=== PATIENT | female | born 1970 | race Caucasian/White ===

== ENCOUNTER 2023-08-22 11:14 | Emergency (ER) | payer OTHER, SELFPAY ==
--- NOTE | ~2023-08-22 | XR_ITS ---
EXAMINATION: XR HAND, RIGHT CLINICAL INFORMATION: Fourth and fifth metacarpal injury after trip and fall COMPARISON: Right fifth digit TECHNIQUE: PA, lateral, and oblique views of the right hand. FINDINGS: Again seen is mild flexion deformity at the DIP joint of the fifth digit. No acute fractures or dislocations are seen. XR/XR hand RT min 3V IMPRESSION: No acute fractures or dislocations. Mild unchanged flexion deformity at the DIP joint of the fifth digit.
[2023-08-22 11:56] VITALS: BP 123/76; PULSE 96; RESP 18; TEMP 36.8; O2SAT 100; BMI 18.4
--- NOTE | 2023-08-22 11:58 | ED_ITS ---
HPI - General Adult General Chief complaint: Extremity Injury, Upper Stated complaint: R hand inj Time Seen by Provider: 08/22/23 13:55 Source: patient, RN notes reviewed and old records reviewed Mode of arrival: ambulatory Limitations: no limitations History of Present Illness HPI narrative: 52-year-old female presents for evaluation of right hand pain. The patient reports that she tripped over dog toy last night and accidentally hit a counter with her right hand She denies any head or losing consciousness. She reports pain indicates the area with a right 4th and 5th MCP joints She reports chronic pain in her wrist but no change from baseline Related Data Allergies Allergy/AdvReac Type Severity Reaction Status Date / Time No Known Allergies Allergy Verified 08/22/23 11:58 Review of Systems Constitutional: Constitutional: Denies body ache(s), Denies chills and Denies fever(s) ENT: Denies sore throat Cardiovascular: Cardiovascular: Denies chest pain Musculoskeletal: Musculoskeletal: Reports arthralgias, Reports joint swelling and Reports limited range of motion Integumentary/Breasts: Skin/Breast: Denies rash PMFSH Social History Social History Advance Directives: No Advance Directives Information Provided: No Physical Exam ED Vital Signs: Vital Signs - 24 hr 08/22/23 11:56 08/22/23 13:58 Temperature 98.2 F 98.2 F Pulse Rate 96 96 Respiratory Rate 18 18 Blood Pressure 123/76 123/76 Pulse Oximetry 100 Oxygen Delivery Method Room Air Room Air BMI result Body Mass Index 18.4 Const General: healthy appearing, comfortable, no acute distress, alert and awake Nutritional Appearance: well nourished Orientation/consciousness: patient oriented x3 HENMT Head: Yes normocephalic and Yes atraumatic Neck Neck: Yes full ROM Resp Effort & Inspection: normal respiratory effort, able to speak in complete sentences and not labored Cardio Rate: regular rate Rhythm: regular rhythm Skin General skin exam: elasticity normal Neuro General: patient oriented x3 Cranial nerves: Yes Bilaterally intact EOM present Cognition (Neuro): normal cognition Extrem Other: Patient has mild edema over right 4th and 5th MCP joints. This area is tender to palpation. No palpable deformity. No right wrist tenderness Course Course Course Narrative: RME- 52-year-old female presents for evaluation of right hand injury. She reports she tripped in the middle of the night and struck her right hand against a counter when she was falling. She has mild edema to the right 4th and 5th metacarpal/MCP joints. Plan for x-ray of the right hand Reevaluation(s) Reevaluation #1: Patient requested ?something stronger than ibuprofen or Tylenol for the pain. I explained that given that there is no fracture, dislocation and just a small bruise to the area I did not feel that narcotics were appropriate. After explained this to the patient, she got up and walked out of the emergency department prior to receiving her discharge papers Time: 14:06 Medical Decision Making Medical Decision Making [facility] Narrative: 52-year-old female presents for evaluation injury to right hand, plan for x- rays. Differential Diagnosis Differential Diagnoses: The differential diagnosis associated with the presentation includes Hand sprain Hand fracture Hand dislocation Contusion Independent Interpretation I performed an independent interpretation of an: Plain X-Ray (No obvious fracture of the right hand) Radiology Impression Discussion of test interpretation with radiology: I have reviewed the radiologist's reading. Radiologist Impression: IMPRESSION: No acute fractures or dislocations. Mild unchanged flexion deformity at the DIP joint of the fifth digit. Discharge Plan Discharge Clinical Impression: Hand pain, right Patient Disposition: Home, Self-Care Instructions: Contusion in Adults (ED) Additional Instructions: Your x-ray did not show any evidence of fracture Use ibuprofen or Tylenol for pain Ice the area every 4 hours for 10-15 minutes Your primary doctor Interventions: ED Discharge Assessment Last Done: 08/22/23 13:58 Print Language: Yakut
[2023-08-22 13:58] VITALS: BP 123/76; PULSE 96; RESP 18; TEMP 36.8
--- OUTSIDE RECORDS SUMMARY | 2023-08-22 14:03 | XMS_ITS | Continuity of Care Document ---
Author Organization [facility] ter Address [address] [place] [address]- Care Team Providers Care Pneumatic Press Hand Name Role Phone Not on Staff, PCP Primary Care Physician Unavail able Encounter [facility] Date(s): 11/01/22 - 11/01/[address] [address]- Encounter Diagnosis Pain, dental(Final) - 11/01/22 Discharge Disposition: A-D/C Home Attending Physician: Kike Barrett MD Admitting Physician: Kike Barrett MD Referring Physician: Not on Staff, Referring MD Allergies, Adverse Reactions, Alerts No Known Allergies Medications Gabapentin By Mouth, 0 Refills, Maintenance, 02/19/21 11:43:00 EDT, Partial fill upon patient request if the prescription is for a schedule II opioid drug. Start Date: 02/19/21 Status: Ordered oxyCODONE 5 mg oral capsule 1 capsule = 5 mg, By Mouth, Every 6 hours, PRN as needed for pain, # 10 capsule, 0 Refills, Maintenance, 11/01/22 14:39:00 EDT, Capsule, [id number], Partial fill upon patient request if the prescription is for a schedule II opioid drug., 155,... Start Date: 11/01/22 Status: Ordered Vital Signs Most recent to oldest [Reference Range]: 1 2 Height 155 cm (11/01/22 3:13 PM) 155 cm (11/01/22 2:06 PM) Oxygen Saturation [94-100 %] 100 % (11/01/22 2:06 PM) 100 % (11/01/22 2:00 PM) Pulse Rate [55-90 bpm] 108 bpm *H* (11/01/22 2:06 PM) 119 bpm *H* (11/01/22 2:00 PM) Blood Pressure [90-138/55-84 mm Hg] 129/ 84mm Hg (11/01/22 2:06 PM) Respiratory Rate [16-30 br/min] 16 br/mi n (11/01/22 2:06 PM) Temperature [96.8-100.4 DegF] 98.4 DegF (11/01/22 2:06 PM) Mode of Delivery (Oxygen) Room air (11/01/22 2:06 PM) Room air (11/01/22 2:00 PM) Blood pressure sites Arm, left (11/01/22 2:06 PM) Temperature Route Oral (11/01/22 2:06 PM) Dry Weight 40.9 kg (11/01/22 3:13 PM) 40.9 kg (11/01/22 2:06 PM) Dry Weight Obtained Via Patient/family s tated (11/01/22 2:06 PM) Note * Arnold RILEY, Kike Galindo: PERFORM, SIGN, VERIFY Event Display: Patient Education Handout Authored Date: [id number] Patient Care team information Care Team Personnel Name: Not on Staff, PCP Position: [facility] Physician (General Medicine) Member Role: PCP Name: Kike Barrett MD Position: [facility] ED Medicine MD Member Role: Admitting Physician Address: Address: [address] [place] [address] [place] [address]- Care Team Related Persons Name: DENISEDARENILDA CHALO Address: home [address] [place] [address]
--- OUTSIDE RECORDS SUMMARY | 2023-08-22 14:03 | XMS_ITS | Continuity of Care Document ---
Author Organization [facility] Address [address] [place] [address]- Care Team Providers Care Plodding Machine Operator Name Role Phone Not on Staff, PCP Primary Care Physician Unavail able Encounter [facility] NBR [id number] Date(s): 02/12/21 - 04/04/21 [facility] [address] [place] [address]- Attending Physician: Kevin RILEY, Farooq Chung Allergies, Adverse Reactions, Alerts Substance Reaction Severity Status NKA Active Medications Gabapentin By Mouth, 0 Refills, Maintenance, 02/19/21 11:43:00 EDT, Partial fill upon patient request if the prescription is for a schedule II opioid drug. Start Date: 02/19/21 Status: Ordered
--- OUTSIDE RECORDS SUMMARY | 2023-08-22 14:03 | XMS_ITS | Continuity of Care Document ---
Author Organization [facility] ter Address [address] [place] [address]- Care Team Providers Care Lead Atg Developer Name Role Phone Not on Staff, PCP Primary Care Physician Unavail able [place]counter [facility] [place] Date(s): 04/13/23 - 04/13/[address] [address]- Discharge Disposition: A-D/C Walkout Attending Physician: Not on Staff, Attending MD Admitting Physician: Not on Staff, Admitting MD Referring Physician: Not on Staff, Referring [...] drug., 155,... Start Date: 11/01/22 Status: Ordered Patient Care team information Care Team Personnel Name: Not on Staff, PCP Position: S Physician (General Medicine) Member Role: PCP Care Team Related Persons Name: MELY GUZMAN Address: home [address] [place] [address] Name: CHALO PICHARDO Address: home [address], [place]
--- OUTSIDE RECORDS SUMMARY | 2023-08-22 14:03 | XMS_ITS | Continuity of Care Document ---
Author Organization [facility] Address [address] [place] [address]- Care Team Providers Care Training Representative Name Role Phone Not on Staff, PCP Primary Care Physician Unavail able [facility] [id number] Date(s): 02/11/21 - 03/20/21 [facility] [address] [place] [address]- Attending Physician: Galo RILEY, Aide Reveles Allergies, Adverse Reactions, Alerts Substance Reaction Severity Status NKA Active Medications Gabapentin By Mouth, 0 Refills, Maintenance, 02/19/21 11:43:00 EDT, Partial fill upon patient request if the prescription is for a schedule II opioid drug. Start Date: 02/19/21 Status: Ordered
--- OUTSIDE RECORDS SUMMARY | 2023-08-22 14:03 | XMS_ITS | Continuity of Care Document ---
Author Organization [facility] Address [address] [place] [address]- Care Team Providers Care Intermodal Truck Driver Name Role Phone Not on Staff, PCP Primary Care Physician Unavail able Encounter [facility] NBR [id number] Date(s): 03/05/21 - 04/04/21 [facility] [address] [place] [address]- Attending Physician: Alex Jones Admitting Physician: Admtr, Ar8 Referring Physician: Admtr, Ar8 Allergies, Adverse Reactions, Alerts Substance Reaction Severity Status NKA Active Medications Gabapentin By Mouth, 0 Refills, Maintenance, 02/19/21 11:43:00 EDT, Partial fill upon patient request if the prescription is for a schedule II opioid drug. Start Date: 02/19/21 Status: Ordered
--- OUTSIDE RECORDS SUMMARY | 2023-08-22 14:03 | XMS_ITS | Continuity of Care Document ---
Author Organization [facility] ter Address [address] [place] [address]- Care Team Providers Care Diver Assistant Name Role Phone Not on Staff, PCP Primary Care Physician Unavail able [place] [facility] [place] 11/09/[address] [address]- Discharge Disposition: A-D/C Home Attending Physician: Krissy Griggs MD Admitting Physician: Krissy Griggs MD Referring Physician: Not on Staff, Referring [...] drug., 155,... Start Date: 11/01/22 Status: Ordered oxyCODONE 5 mg oral tablet 5 mg, 1, tablet, By Mouth, Daily at bedtime, PRN, for 3 days, # 3 tablet, Refills 0, Tot. Refills 0, Acute 11/12/22 11:49:00 EDT, for pain, 11/09/22 11:49:00 EDT, [id number], Partial fill upon patient request... Start Date: 11/09/22 Stop Date: 11/12/22 Status: Ordered penicillin V potassium 500 mg oral tablet 1 tablet = 500 mg, By Mouth, 4 times a day, for 7 days, # 28 tablet, 0 Refills, Acute 11/16/22 11:53:00 EDT, 11/09/22 11:53:00 EDT, Tablet, [facility]/pharmacy #[id number], Partial fill upon patient request if the prescription is for a schedule II opioid drug., 15... Start Date: 11/09/22 Stop Date: 11/16/22 Status: Ordered Vital Signs Most recent to oldest [Reference Range]: 1 2 3 Height 155 cm (11/09/22 12:22 PM) 155 cm (11/09/22 11:59 AM) 155 cm (11/09/22 11:27 AM) Oxygen Saturation [94-100 %] 99 % (11/09/22 11:59 AM) 100 % (11/09/22 11: AM) Pulse Rate [55-90 bpm] 115 bpm *H* (11/09/22 11:59 AM) 107 bpm *H* (11/09/22 11:27 AM) Blood Pressure [90-138/55-84 mm Hg] 136/85mm Hg (11/09/22 11:59 AM) 134/83mm Hg (11/09/22 11:27 AM) Respiratory Rate [16-30 br/min] 18 br/min (11/09/22 11:59 AM) Temperature [96.8-100.4 DegF] 98.7 DegF (11/09/22 11:59 AM) 98.2 DegF (11/09/22 11:27 AM) Mode of Delivery (Oxygen) Room air (11/09/22 11:59 AM) Room air (11/09/22 11:27 AM) Blood pressure sites Arm, left (11/09/22 11:59 AM) Arm, left (11/09/22 11:27 AM) Temperature Route Oral (11/09/22 11:59 AM) Oral (11/09/22 11:27 AM) Dry Weight 41 kg (11/09/22 12:22 PM) 41 kg (11/09/22 11:59 AM) 41 kg (11/09/22 11:27 AM) Weight Obtained Via Patient/family state d (11/09/22 11:27 AM) Dry Weight Obtained Via Patient/family s tated (11/09/22 11:27 AM) Note * Krissy Griggs MD: PERFORM, SIGN, VERIFY Event Display: Patient Education Handout Authored Date: [id number] Patient Care team information Care Team Personnel Name: Not on Staff, PCP Position: [facility] Physician (General Medicine) Member Role: PCP Name: Krissy Griggs MD Position: [facility] ED Medicine MD Member Role: Admitting Physician Address: Address: [address] [place] [address] Emergency Medicine [address] Care Team Related Persons Name: CHALO PICHARDO Address: home [address] [place] [address]
--- OUTSIDE RECORDS SUMMARY | 2023-08-22 14:03 | XMS_ITS | Continuity of Care Document ---
Author Organization [facility] Address [address] [place] [address]- Care Team Providers Care Reverse Unit Operator Fisherman Name Role Phone Not on Staff, PCP Primary Care Physician Unavail able Encounter [facility] NBR [id number] Date(s): 02/11/21 - 03/20/21 [facility] [address] [place] [address]- Attending Physician: Galo RILEY, Aide Reveles Allergies, Adverse Reactions, Alerts Substance Reaction Severity Status NKA Active Medications Gabapentin By Mouth, 0 Refills, Maintenance, 02/19/21 11:43:00 EDT, Partial fill upon patient request if the prescription is for a schedule II opioid drug. Start Date: 02/19/21 Status: Ordered
== END 2023-08-22 14:07 | disposition home or self-care (01) ==
PROVIDERS: Emergency Provider Emergency Medicine
DX: M79.641 Pain in right hand (principal)
CPT/HCPCS: 73130; 99282; 99283

== ENCOUNTER 2024-03-07 17:54 | Emergency (ER) | payer OTHER, SELFPAY ==
--- OUTSIDE RECORDS SUMMARY | 2024-03-07 18:35 | XMS_ITS | Continuity of Care Document ---
Author Organization [facility] ter Address [address] [place] [address]- Care Team Providers Care Planning Advisor Name Role Phone Not on Staff, PCP Primary Care Physician Unavail able [place] [facility] [place]/24/24 - 01/24/[address] [address]- Discharge Disposition: A-D/C Home Attending Physician: Mariana Patel MD Admitting Physician: Mariana Patel MD Referring Physician: Not on Staff, Referring MD Allergies, Adverse Reactions, Alerts No Known Allergies Medications Gabapentin = 400 mg, By Mouth, 3 times a day, 0 Refills, Maintenance, 08/03/23 9:21:00 EDT, Partial fill upon patient request if the prescription is for a schedule II opioid drug. Start Date: 08/03/23 Status: Ordered oxyCODONE 5 mg oral tablet 5 mg, 1, tablet, By Mouth, Every 6 hours, PRN, # 4 tablet, Refills 0, Tot. Refills 0, Maintenance, as needed for pain, 01/13/24 13:06:00 EDT, Route to Pharmacy Electronically, [facility]/pharmacy #[id number], Partial fill upon patient request if the prescription i... Start Date: 01/13/24 Status: Ordered Problem List Condition Confirmation Course Effective Dates Status Health St atus Informant Underweight Confirmed Active Results Radiology Reports * Exam Date Time Procedure Performing Provider Status 01/24/24 9:37 AM Finger 5th Right Hand Thea Weinstein; [facility] (Verified) Notes: (Finger 5th Right Hand) Reason For Exam: Pain RESULT: Finger 5th Right Hand Finger 5th Right Hand, 3 views Hx of Present Illness: 5th finger. Range of motion COMPARISON: 01/10/2024 FINDINGS: No fractures or bone lesions. No arthritic changes. Normal soft tissues. IMPRESSION: Normal. WSN: [id number] Ordering Physician: Niall Pretty Dictated By: Kalyan Ding MD Dictated Date/Time: 01/24/24 9:42 am Reviewed By: Kalyan Ding MD Signed By: Kalyan Ding MD Signed Date/Time: 01/24/24 9:42 am Transcribed By: SOHAIL Transcribed Date/Time: 01/24/24 9:41 am Vital Signs Most recent to oldest [Reference Range]: 1 Height 156 cm (01/24/24 8:28 AM) Oxygen Saturation [94-100 %] 100 % (01/24/24 8:28 AM) Pulse Rate [55-90 bpm] 100 bpm *H* (01/24/24 8:28 AM) Blood Pressure [90-138/55-84 mm Hg] 112/ 78mm Hg (01/24/24 8:28 AM) Respiratory Rate [16-30 br/min] 20 br/mi n (01/24/24 8:28 AM) Temperature [96.8-100.4 DegF] 98.1 DegF (01/24/24 8:28 AM) Mode of Delivery (Oxygen) Room air (01/24/24 8:28 AM) Blood pressure sites Arm, left (01/24/24 8:28 AM) Temperature Route Oral (01/24/24 8:28 AM) Dry Weight 41 kg (01/24/24 8:28 AM) Dry Weight Obtained Via Patient/family s tated (01/24/24 8:28 AM) Social History Social History Type Response Smoking Status Never (less than 100 in lifetime) entered on: 05/12/23 Sex Female Patient Care team information Care Team Personnel Name: Not on Staff, PCP Position: S Physician (General Medicine) Member Role: PCP Care Team Related Persons Name: MELY GUZMAN Address: home [address] [place] [id number] Name: CHALO PICHARDO Address: home [address] [place] [address]
--- OUTSIDE RECORDS SUMMARY | 2024-03-07 18:35 | XMS_ITS | Continuity of Care Document ---
Author Organization [facility] ter Address [address] [place] [address]- Care Team Providers Care Supervisor Statement Clerks Name Role Phone Not on Staff, PCP Primary Care Physician Unavail able [place]counter [facility] [place] Date(s): 08/25/23 - 08/25/[address] [address]- Encounter Diagnosis Dental decay(Final) - 08/25/23 Discharge Disposition: A-D/C Home Attending Physician: Chencho Servin MD Admitting Physician: Chencho Servin MD Referring Physician: Not on Staff, Referring MD Allergies, Adverse Reactions, Alerts No Known Allergies Medications Gabapentin = 400 mg, By Mouth, 3 times a day, 0 Refills, Maintenance, 08/03/23 9:21:00 EDT, Partial fill upon patient request if the prescription is for a schedule II opioid drug. Start Date: 08/03/23 Status: Ordered ondansetron 4 mg oral tablet, disintegrating 1 tablet = 4 mg, By Mouth, Every 8 hours, PRN as needed for nausea/vomiting, # 6 tablet, 0 Refills,Maintenance, 08/20/23 12:01:00 EDT, DIS Tablet, Partial fill upon patient request if the prescription is for a schedule II opioid drug. Start Date: 08/20/23 Status: Ordered oxyCODONE 5 mg oral tablet 2.5 mg, 0.5, tablet, By Mouth, Every 6 hours, PRN, # 4 tablet, Refills 0, Tot. Refills 0, Acute 09/03/23 15:40:00 EDT, as needed for pain, 08/19/23 15:40:00 EDT, Route to Pharmacy Electronically, [facility]/pharmacy #[id number], Partial fill upon patient request i... Start Date: 08/19/23 Stop Date: 09/03/23 Status: Ordered oxyCODONE 5 mg oral tablet 5 mg, 1, tablet, By Mouth, Every 6 hours, PRN, for 2 days, Partial fill available at patients request, # 6 tablet, Refills 0, Tot. Refills 0, Acute 08/27/23 15:16:00 EDT, for pain, 08/25/23 15:16:00 EDT, Route to Pharmacy Electronically, [facility]/pharmacy... Start Date: 08/25/23 Stop Date: 08/27/23 Status: Ordered OxyCODONE IR Tablet 5 mg, Tablet, By Mouth, Once, STAT, 08/25/23 12:03:00 EDT, Stop date 08/25/23 12:03:00 EDT Start Date: 08/25/23 Stop Date: 08/25/23 Status: Completed Problem List Condition Confirmation Course Effective Dates Status Health St atus Informant Underweight Confirmed Active Vital Signs Most recent to oldest [Reference Range]: 1 2 3 Height 155 cm (08/25/23 12:22 PM) 155 cm (08/25/23 11:08 AM) Oxygen Saturation [94-100 %] 100 % (08/25/23 3:20 PM) 100 % (08/25/23 11:08 AM) 100 % (08/25/23 11:01 AM) Pulse Rate [55-90 bpm] 88 bpm (08/25/23 3:20 PM) 94 bpm *H* (08/25/23 11:08 AM) 99 bpm *H* (08/25/23 11:01 AM) Blood Pressure [90-138/55-84 mm Hg] 102/66mm Hg (08/25/23 3:20 PM) 107/62mm Hg (08/25/23 11:08 AM) Respiratory Rate [16-30 br/min] 18 br/min (08/25/23 3:20 PM) 16 br/min (08/25/23 12:20 PM) 18 br/min (08/25/23 11:08 AM) Temperature [96.8-100.4 DegF] 98.4 DegF (08/25/23 11:08 AM) Mode of Delivery (Oxygen) Room air (08/25/23 3:20 PM) Room air (08/25/23 11:08 AM) Room air (08/25/23 11:01 AM) Blood pressure sites Arm, left (08/25/23 11:08 AM) Temperature Route Oral (08/25/23 11:08 AM) Social History Social History Type Response Smoking Status Never (less than 100 in lifetime) entered on: 05/12/23 Sex Patient Care team information Care Team Personnel Name: Not on Staff, PCP Position: S Physician (General Medicine) Member Role: PCP Care Team Related Persons Name: MELY GUZMAN Address: [address] [address] Name: CHALO PICHARDO Address: home [address] [place] [address]
--- OUTSIDE RECORDS SUMMARY | 2024-03-07 18:35 | XMS_ITS | Continuity of Care Document ---
Author Organization [facility] ter Address [address] [place] [id number]- Care Team Providers Care Coding Support Specialist Name Role Phone Not on Staff, PCP Primary Care Physician Unavail able Encounter [facility] Date(s): 01/10/24 - 01/10/[address] [address]- Encounter Diagnosis Finger pain(Final) - 01/10/24 Discharge Disposition: A-D/C Home Attending Physician: Mariana [...] opioid drug. Start Date: 08/03/23 Status: Ordered ibuprofen 600 mg oral tablet 600 mg, 1, tablet, By Mouth, 4 times a day, for 5 days, # 20 tablet, Refills 0, Tot. Refills 0, Acute 01/13/24 18:04:00 EDT, 01/08/24 18:04:00 EDT, Route to Pharmacy Electronically, [facility]/pharmacy #[id number], Partial fill upon patient request if the prescrip... Start Date: 01/08/24 Stop Date: 01/13/24 Status: Ordered oxyCODONE 5 mg oral tablet 5 mg, 1, tablet, By Mouth, Every 6 hours, PRN, # 5 tablet, Refills 0, Tot. Refills 0, Acute 01/13/24 8:00:00 EDT, as needed for pain, 01/10/24 9:21:00 EDT, Route to Pharmacy Electronically, [facility]/pharmacy #[id number], Partial fill upon patient request if the... Start Date: 01/10/24 Stop Date: 01/13/24 Status: Ordered OxyCODONE IR Tablet 5 mg, Tablet, By Mouth, Once, STAT, 01/10/24 8:28:00 EDT, Stop date 01/10/24 8:28:00 EDT Start Date: 01/10/24 Stop Date: 01/10/24 Status: Completed Problem List Condition Confirmation Course Effective Dates Status Health St atus Informant Underweight Confirmed Active Results Radiology Reports * Exam Date Time Procedure Performing Provider Status 01/10/24 8:55 AM Finger 5th Right Hand Myke Reynoso n; Auth (Verified) Notes: (Finger 5th Right Hand) Reason For Exam: Pain RESULT: Finger 5th Right Hand Examination: Right hand and right fifth digit performed on 01/10/2024. History: Hx of Present Illness: Pt reports injuring her R Pinky Finger on Tuesday, states she was seen at outside facility where XR showed a Fx. Pt reports hitting the finger again today and reports increased pain and decreased ROM; Reason: Pain; Clinical Question(s): Fracture Findings: A frontal view of the right hand and oblique and lateral views of the fifth digit are compared to aprior study dated 01/08/2024. No fractures or dislocations are demonstrated. Joint space narrowing involving the fifth proximal and distal interphalangeal joints is seen without productive change. The soft tissues are unremarkable. IMPRESSION: There is no osseous abnormality. WSN: [id number] Ordering Physician: Ev Rice Dictated By: Lydia Schultz MD Dictated Date/Time: 01/10/24 9:08 am Reviewed By: Lydia Schultz MD Signed By: Lydia Schultz MD Signed Date/Time: 01/10/24 9:08 am Transcribed By: SOHAIL Transcribed Date/Time: 01/10/24 8:58 am Vital Signs Most recent to oldest [Reference Range]: 1 2 3 Height 155 cm (01/10/24 9:47 AM) 155 cm (01/10/24 8:17 AM) 155 cm (01/10/24 8:13 AM) Weight 40.9 kg (01/10/24 9:47 AM) 40.9 kg (01/10/24 8:17 AM) 40.9 kg (01/10/24 8:13 AM) Oxygen Saturation [94-100 %] 100 % (01/10/24 9:47 AM) 100 % (01/10/24 8:13 AM) Pulse Rate [55-90 bpm] 95 bpm *H* (01/10/24 9:47 AM) 104 bpm *H* (01/10/24 8:13 AM) Body Mass Index [18.5-24.99 kg/m2] 17.02 kg/m2 *L* (01/10/24 9:47 AM) 17.02 kg/m2 *L* (01/10/24 8:13 AM) Blood Pressure [90-138/55-84 mm Hg] 94/62mm Hg (01/10/24 9:47 AM) 115/67mm Hg (01/10/24 8:13 AM) Respiratory Rate [16-30 br/min] 16 br/min (01/10/24 9:47 AM) 16 br/min (01/10/24 8:37 AM) 18 br/min (01/10/24 8:13 AM) Temperature [96.8-100.4 DegF] 97.8 DegF (01/10/24 9:47 AM) 97.8 DegF (01/10/24 8:13 AM) Mode of Delivery (Oxygen) Room air (01/10/24 9:47 AM) Room air (01/10/24 8:13 AM) Blood pressure sites Arm, left (01/10/24 9:47 AM) Arm, left (01/10/24 8:13 AM) Temperature Route Oral (01/10/24 9:47 AM) Oral (01/10/24 8:13 AM) Dry Weight 40.9 kg (01/10/24 9:47 AM) 40.9 kg (01/10/24 8:17 AM) 40.9 kg (01/10/24 8:13 AM) Weight Obtained Via Patient/family state d (01/10/24 8:13 AM) Dry Weight Obtained Via Patient/family s tated (01/10/24 8:13 AM) Social History Social History Type Response Smoking Status Never (less than 100 in lifetime) entered on: 05/12/23 Sex Female Note * Ev Segovia: PERFORM, SIGN, VERIFY Event Display: Patient Education Handout Authored Date: [id number] * Ev Segovia: PERFORM Event Display: Patient Education Leaflets Authored Date: [facility] - If you need a Doctor or Clinic ?? 34 If You Need a Doctor or Clinic ?? Call [facility] PCP Assignment Line to help you find a doctor:?? [phone] ?? Clinics in [place], [place] For a full list of clinics:? [email or web address] ?? [facility]? [address] [phone] [facility] Internal medicine Clinic?[address]?[phone] [place] [address]?[address][phone] [facility]?[address][phone] [facility]?[address] [phone] [facility]?[address][phone] [facility]?[address][phone] [facility]?[address] [phone] [facility]? [address][phone] 4 [facility]?[address][phone] [facility]?[address][phone] [facility]?[address][phone] [facility]?[address][phone] [facility]? [address][phone] [facility]?[address][phone] ? * Ev Segovia: PERFORM Event Display: Patient Education Leaflets Authored Date: [id number] Finger Sprain ?? [id number] Finger Sprain A sprain is a stretching or tearing of the ligaments that hold a joint together. There are no broken bones. Sprains take 3 to 6 weeks or more to heal. A sprained finger may be treated with a splint or veronique tape. This is when you tape the injured finger to the one next to it for support. Minor sprains may require no additional support. Home care ??? Keep your hand raised (elevated) to reduce pain and swelling. This is very important during the first 48 hours. ??? Apply an ice pack over the injured area for 15 to 20 minutes every 3 to 6 hours. You should do this for the first 24 to 48 hours. You can make an ice pack by filling a plastic bag that seals at the top with ice cubes and then wrapping it with a thin towel. Continue theuse of ice packs for relief of pain and swelling as needed. As the ice melts, be careful to avoid getting any wrap or splint wet. After 48 to 72 hours, or as directed by your healthcare provider, apply heat (warm shower or warm bath) for 15 to 20 minutes several times a day. Or you can switch between ice and heat. ??? If veronique tape was applied and it becomes wet or dirty, change it. You may replace it with paper, plastic or cloth tape. Cloth tape and paper tapes must be kept dry. Apply gauze orcotton padding between the fingers, especially at the webbed space. This will help prevent the skinfrom getting moist and breaking down. Keep the veronique tape in place for at least 4 weeks, or as instructed by your healthcare provider. ??? If a splint was applied, wear it for the time advised. ??? You may use wjsu-rob-rwweqav pain medicine to control pain, unless another pain medicine was prescribed. If you have long-term (chronic) liver or kidney disease, ever had a stomach ulcer or gastrointestinal bleeding, or take blood thinners, talk with your healthcare provider before using these medicines. ?? Follow-up care Follow up with your healthcare provider as directed. Finger joints will become stiff if immobile for too long. If a splint was applied, ask your healthcare provider when it's safe to begin pbisp-zo-vfniyv exercises. Sometimes fractures don???t show up on the first X-ray. Bruises and sprains can sometimes hurt as much as a fracture. These injuries can take time to heal completely. If your symptoms don???t improveor they get worse, talk with your healthcare provider. You may need a repeat X-ray. If X-rays were taken, you'll be told of any new findings that may affect your care. ?? When to get medical advice Call your healthcare provider right away if any of these occur: ??? Pain or swelling increases ??? Fingers or hand becomes cold, blue, numb, or tingly ?? Last Reviewed Date: 2021 ?? The [employer]. All rights reserved. This information is not intended as a substitute for professional medical care. Always follow your healthcare professional's instructions. ?? * Ev Segovia: PERFORM Event Display: Patient Education Leaflets Authored Date: [id number] Opioid Prescription Risks and Treatment Resources ?? 223 Prescription Opioid Risks and Treatment Resources You have been prescribed an opioid as part of your pain treatment, which may be used following injury, surgery, or arising from other health conditions. All patients taking opioids are at risk for unintentional overdose, addiction, or . Therefore, you should discuss with your prescriber all treatment options available to you. ?? Common side effects of opioids include: ? Constipation ? Breathing problems ? Low Sex Drive, Energy, and Strength ? Sleepiness/drowsiness ? Confusion ? Nausea ?? Opioids are powerful painkillers, and if misused can have serious side effects including addiction.Your risk increases if: ? You are also taking other drugs like antihistamines, barbiturates, or antidepressant/anxiety medications (e.g., Benzodiazepines) ? You consume alcohol while taking opioids ? You or a family member have a history of substance use disorder or overdose ? You have a mental health condition, such as depression or anxiety ? You have sleep apnea ? You take more than the recommended prescribed amount ?? Know your options ? Read all instructions for your medication, take your medication exactly as prescribed, do not adjust your doses, and keep track of when you take your medication. ? If you have any questions about your medication ask your prescriber or pharmacist, including information about possible side effects as well as options for seeking a partial fill of the prescription. If you decide to partially fill your prescription opioid, you will need to contact your prescriber if additional medication is needed. ? Talk to your prescriber about non-opioid treatment options or if you don???t want nabeel treated with opioids. ? Ask your prescriber about having an antidote (e.g., Naloxone) in case of an accidental overdose. ?? Protecting family, friends, and others Storage: Medications should be kept in a locked cabinet or box when not in use. Medications should be placed in a location hard for children and pets to reach Disposal: For the safety of others and the environment, patients are encouraged to take advantage of drug take-back programs and safe drop sites, which are available on the [place] [employer]cription[facility] Location website.[1] When these programs are not accessible, other secondary methods including flushing the medication down the toilet should be considered Addiction Resources:?? Be aware of the signs of addiction, which include uncontrollable cravings and inability to control opioid use even though it is having negative effects on personal relationships or finances. If you suspect or are concerned about addiction, the following resources may help: ? For Youth, Young Adults (up to age 24), and Women : [place] [facility]: or 052-040-0523 ? For all [place] residents: Information and Referrals for Substance Abuse Services: TTY: 294.535.3218 or online at www.[employer] ?? Recommendations for Medication Storage Medications can be an important part of any treatment but also come with serious risks.?? Prescription opioids in particular are used to treat moderate or severe pain following injury, surgery, or for other health conditions.?? To avoid accidental or illegal use of prescriptions by others, it is critical that you properly store medication in areas least likely to be found or accessible by children, family members, and guests ?? Commonly Abused Prescription Medications: ? Pain Medications prescribed for people with serious, long-term pain, and sometimes short term pain: Vicodin??, OxyContin??, Percocet??, and codeine ? Stimulants used to treat attention deficit hyperactivity disorder (ADHD), or other disorders: Ritalin??, Concerta??, Adderall??, Dexedrine??, and Meridia? Sedatives, Tranquilizers, and Barbituates prescribed to treat stress, anxiety, panicattack, insomnia and seizures: Valium??, Xanax??, Ativan??, Klonopin??, Ambien??, Lunesta? Keeping others Safe: It is important to store your medication in a place that is not likely to be found by children, family members, and guests. ? Keep your prescriptions in a secure location to make sure kids, family, and guests don???t have access to them, preferably in a locked box which you can purchase at your local pharmacy. ? Know where your prescription medications are at all times. ? Keep prescription medications in the original bottle with the label attached and thechild-resistant cap secured. ? Keep track of how many prescription pain pills are in your bottle so you are immediately aware if any are missing. ?? Additional Best Practices for Proper Storage: ? Don???t leave the cotton plug in a medicine bottle. ? Check the expiration date each time you take a drug. ? Never use a medication that has changed color, texture, or odor, even if it has not . Safely dispose of capsules or tablets that stick together, are harder or softer than normal, or are cracked or chipped. ? Ask your pharmacist about any specific storage instructions for your medications. ?? Why this information is important: According to recent statistics, approximately 71% of obtained prescription drugs are gifted, purchased, or stolen from friends and relatives. In fact, survey results from 2504-6847 suggest that 6.1 million people have used prescription drugs for non-medical purposes in a given month. Proper storageand keeping commonly abused medications out of reach of children, family members, and guests can prevent others from illegally or accidentally taking your medications and prevent harmful risks such as overdose or . ? [1] http://www.[place].gov/eohhs/gov/departments/dph/programs/substance-abuse/preventio n/zbtrjdnsxdyd-hbdllox-ufuwxynmb.html ?? Patient Care team information Care Team Personnel Name: Not on Staff, PCP Position: S Physician (General Medicine) Member Role: PCP Care Team Related Persons Name: MELY GUZMAN Address: home [address] [place] [id number] Name: CHALO PICHARDO Address: home [address] [place] [address]
--- OUTSIDE RECORDS SUMMARY | 2024-03-07 18:35 | XMS_ITS | Continuity of Care Document ---
Author Organization [facility] ter Address [address] [place] [id number]- Care Team Providers Care Burlap Bag Sewer Name Role Phone Not on Staff, PCP Primary Care Physician Unavail able Encounter [facility] Date(s): 08/22/23 - 08/22/[address] [address]- Discharge Disposition: A-D/C Home Attending Physician: Reta Cee MD Admitting Physician: Reta Cee MD Referring Physician: Not on Staff, Referring [...] 08/19/23 15:40:00 EDT, Route to Pharmacy Electronically, [facility]/pharmacy #[id number], Partial fill upon patient request i... Start Date: 08/19/23 Stop Date: 09/03/23 Status: Ordered Problem List Condition Confirmation Course Effective Dates Status Health St atus Informant Underweight Confirmed Active Results Radiology Reports * Exam Date Time Procedure Performing Provider Status 08/22/23 8:56 AM Hand Min 3 Views Right Reji Godinez; Bao (Verified) Notes: (Hand Min 3 Views Right) Reason For Exam: with Pain;Trauma RESULT: Hand Min 3 Views Right Right hand, 3 views Hx of Present Illness: pt tripped and fell night before last, has some increased pain in right handand right pinky, no swelling appreciated, pain on palp, good CMS and cap refill; COMPARISON: 08/10/2023 FINDINGS: No fractures or bone lesions. Unchanged mild flexion deformity of the 5th DIP joint. No arthritic changes. Normal soft tissues. IMPRESSION: No acute abnormality. WSN: [id number] Ordering Physician: Ani Duran Dictated By: Kalyan Ding MD Dictated Date/Time: 08/22/23 9:04 am Reviewed By: Kalyan Ding MD Signed By: Kalyan Ding MD Signed Date/Time: 08/22/23 9:04 am Transcribed By: SOHAIL Transcribed Date/Time: 08/22/23 9:02 am Vital Signs Most recent to oldest [Reference Range]: 1 2 Height 156 cm (08/22/23 8:42 AM) Weight 41 kg (08/22/23 8:42 AM) Oxygen Saturation [94-100 %] 100 % (08/22/23 8:42 AM) 100 % (08/22/23 8:38 AM) Pulse Rate [55-90 bpm] 95 bpm *H* (08/22/23 8:42 AM) 114 bpm *H* (08/22/23 8:38 AM) Body Mass Index [18.5-24.99 kg/m2] 16.85 kg/m2 *L* (08/22/23 8:42 AM) Blood Pressure [90-138/55-84 mm Hg] 126/ 71mm Hg (08/22/23 8:42 AM) Respiratory Rate [16-30 br/min] 18 br/mi n (08/22/23 8:42 AM) 18 br/min (08/22/23 8:38 AM) Temperature [96.8-100.4 DegF] 98.4 DegF (08/22/23 8:42 AM) Mode of Delivery (Oxygen) Room air (08/22/23 8:42 AM) Room air (08/22/23 8:38 AM) Blood pressure sites Arm, left (08/22/23 8:42 AM) Temperature Route Oral (08/22/23 8:42 AM) Dry Weight 41 kg (08/22/23 8:42 AM) Weight Obtained Via Standing scale (08/22/23 8:42 AM) Dry Weight Obtained Via Standing scale (08/22/23 8:42 AM) Social History Social History Type Response Smoking Status Never (less than 100 in lifetime) entered on: 05/12/23 Sex Note * Ivory Cuellar: PERFORM Event Display: Patient Education Leaflets Authored Date: [id number] Hand Bruise ?? [id number] Hand Bruise You have a bruise (contusion). There is swelling and some bleeding under the skin, but no broken bones. This injury??generally??takes a few days to a few weeks to heal. ??During that time, the bruisewill typically change in color from??reddish, to purple-blue, to greenish-yellow, then to yellow-brown. Home care ??? Raise (elevate) the hand to reduce pain and swelling.??As much as possible, sit or lie down with the hand raised about the level of your heart.??This is especially important during the first 48 hours. ??? Ice the hand to help reduce pain and swelling.??To make an ice pack, place ice cubes in a plastic bag that seals at the top. Wrap the bag in a thin towel. Apply to the bruised areafor 20 minutes every 1 to 2 hours the first day. Continue this 3 to 4 times a day until the pain and swelling goes away. ??? Unless another medicine was prescribed, you can take acetaminophen, ibuprofen, or naproxen??to control pain. Talk with your healthcare provider before using these medicines if you have chronic liver or kidney disease. Also talk with your provider first if you've ever had a stomach ulcer or digestive tract bleeding. ?? Follow up Follow up with your healthcare provider as advised. Call if you don't get better in??1 to 2 weeks. ?? When to get medical advice?? Call your healthcare provider right away if any of the following occur: ??? Increased pain or swelling ??? Arm becomes cold, blue, numb, or tingly ??? Signs of infection:??warmth, drainage, or increased redness or pain around the bruise ??? Inability to move the injured hand, any of the fingers, orthe joints of the finger ??? Frequent bruising for unknown reasons ?? Last Reviewed Date: 2021 ?? 4503-1108 [employer]. All rights reserved. This information is not intended as a substitute for professional medical care. Always follow your healthcare professional's instructions. ?? Patient Care team information Care Team Personnel Name: Not on Staff, PCP Position: S Physician (General Medicine) Member Role: PCP Care Team Related Persons Name: MELY GUZMAN Address: [address] [address] Name: CHALO PICHARDO Address: home [address] [place] [address]
--- OUTSIDE RECORDS SUMMARY | 2024-03-07 18:35 | XMS_ITS | Continuity of Care Document ---
Author Organization [facility] ter Address [address] [place] [address]- Care Team Providers Care Software Sales Name Role Phone Not on Staff, PCP Primary Care Physician Unavail able Encounter [facility] [place] Date(s): 03/06/24 - 03/06/[address] [address]- Encounter Diagnosis Muscle strain(Final) - 03/06/24 Discharge Disposition: A-D/C Home Attending Physician: Rain Strauss DO Admitting Physician: Rain Strauss DO Referring Physician: Not on Staff, Referring MD [...] 01/13/24 13:06:00 EDT, Route to Pharmacy Electronically, [facility]/pharmacy #[id number], Partial fill upon patient request if the prescription i... Start Date: 01/13/24 Status: Ordered oxyCODONE 5 mg oral tablet 5 mg, Tablet, By Mouth, Once, STAT, 03/06/24 16:32:00 EDT, Stop date 03/06/24 16:32:00 EDT Start Date: 03/06/24 Stop Date: 03/06/24 Status: Completed Problem List Condition Confirmation Course Effective Dates Status Health St atus Informant Underweight Confirmed Active Vital Signs Most recent to oldest [Reference Range]: 1 2 Height 156 cm (03/06/24 1:13 PM) 156 cm (03/06/24 12:52 PM) Oxygen Saturation [94-100 %] 100 % (03/06/24 12:52 PM) Pulse Rate [55-90 bpm] 101 bpm *H* (03/06/24 12:52 PM) Blood Pressure [90-138/55-84 mm Hg] 117/ 69mm Hg (03/06/24 12:52 PM) Respiratory Rate [16-30 br/min] 16 br/mi n (03/06/24 4:36 PM) 20 br/min (03/06/24 12:52 PM) Temperature [96.8-100.4 DegF] 98.6 DegF (03/06/24 12:52 PM) Mode of Delivery (Oxygen) Room air (03/06/24 12:52 PM) Blood pressure sites Arm, left (03/06/24 12:52 PM) Temperature Route Oral (03/06/24 12:52 PM) Dry Weight 41 kg (03/06/24 1:13 PM) 41 kg (03/06/24 12:52 PM) Dry Weight Obtained Via Patient/family s tated (03/06/24 12:52 PM) Social History Social History Type Response Smoking Status Never (less than 100 in lifetime) entered on: 05/12/23 Sex Female Note * Cassidy Prakash NP: PERFORM Event Display: Patient Education Leaflets Authored Date: [id number] Physical Therapy Referral ?? 250 ?? This page is FOR PRESCRIBERS Only, ? DO NOT GIVE TO THE PATIENT?? Physical Therapy Referral Program for Management of Pain In an effort to reduce narcotic use, some of our ED patients will benefit from a direct referral [place] care.?? [facility] will see INSURED patients and has a system in place to avoid sending follow up paperwork to the ED prescribers.? Note: Non-[facility] physical therapy services will probably NOT be able to handle ED generated PT referrals. ?? Patients should still follow up with their PCP as soon as possible regarding their ongoing care. Inform patients that [facility] will discuss insurance when they call.?? Some insurance plans limit the amount of PT a patient can receive each year. ?? Complete the FIRST PAGE of the patient???s referral sheet. [place] or write in diagnosis. M odify the timing for treatment, if needed. List any major precautions (i.e.?? Non-weight bearing limb), if needed. Sign, date and print your name at the bottom. ? Physical Therapy Referral Form Patient Instructions: You are being referred to physical therapy.?? This form is your referral and MUST be brought to your appointment. You need to call to set up your appointment. ?? This form can be used at any [facility] location.?? A list of locations is attached.?? 1)?? DIAGNOSIS/ICD-10 (new [place] one) Cervicalgia: M54.2 ? Strain of muscle, fascia and tendon at neck level: S16.1XXD? Radiculopathy, cervical region: M54.12? Mid back pain: M54.9 ? Low back pain:?? M54.5 Strain of muscle, fascia and tendon of lower back: S39.012D Radiculopathy, lumbosacral region: M54.17 Other:? 2)? [? ]? Evaluate and Treat 2 Times/Week for 4 weeks as needed [? ]?Other: 3)? [? ]? No Precautions [? ]?Precautions: ?? I hereby certify these services as medically necessary for the patient???s plan of care. Physician???s Signature Date Physician Name (printed)? Locations You can call any location below.?? Tell them you were seen in a [facility] and have a referral form.?? Remember to bring your referral form with you to the appointment. FELICITA Davila [id number]? FELICITA Paz [address] [address] [facility], [address]? [address] [place] [address] Road ? FELICITA Beltran [address]? FELICITA Jiménez [address] [place] [address]? [address] ? [place] [address]? [place] [address] [address] ? [place] [address]? [facility] [address] ? * Cassidy Prakash NP: PERFORM Event Display: Patient Education Leaflets Authored Date: [id number] Physical Therapy Referral ?? 250 ?? This page is FOR PRESCRIBERS Only, ? DO NOT GIVE TO THE PATIENT?? Physical Therapy Referral Program for Management of Pain In an effort to reduce narcotic use, some of our ED patients will benefit from a direct referral [facility].?? [facility] will see INSURED patients and has a system in place to avoid sending follow up paperwork to the ED prescribers.? Note: Non-[facility] physical therapy services will probably NOT be able to handle ED generated PT referrals. ?? Patients should still follow up with their PCP as soon as possible regarding their ongoing care. Inform patients that [facility] will discuss insurance when they call.?? Some insurance plans limit the amount of PT a patient can receive each year. ?? Complete the FIRST PAGE of the patient???s referral sheet. [place] or write in diagnosis. M odify the timing for treatment, if needed. List any major precautions (i.e.?? Non-weight bearing limb), if needed. Sign, date and print your name at the bottom. ? Physical Therapy Referral Form Patient Instructions: You are being referred to physical therapy.?? This form is your referral and MUST be brought to your appointment. You need to call to set up your appointment. ?? This form can be used at any [facility] location.?? A list of locations is attached.?? 1)?? DIAGNOSIS/ICD-10 (new [place] one) Cervicalgia: M54.2 ? Strain of muscle, fascia and tendon at neck level: S16.1XXD? Radiculopathy, cervical region: M54.12? Mid back pain: M54.9 ? Low back pain:?? M54.5 Strain of muscle, fascia and tendon of lower back: S39.012D Radiculopathy, lumbosacral region: M54.17 Other:? 2)? [? ]? Evaluate and Treat 2 Times/Week for 4 weeks as needed [? ]?Other: 3)? [? ]? No Precautions [? ]?Precautions: ?? I hereby certify these services as medically necessary for the patient???s plan of care. Physician???s Signature Date Physician Name (printed)? Locations You can call any location below.?? Tell them you were seen in a [facility] and have a referral form.?? Remember to bring your referral form with you to the appointment. FELICITA Davila [address]? FELICITA Paz [address] [place] [address], [address]? [address] ? [place] F[place]ICITA [address]? FELICITA Jiménez [address] [place] [address]? [address] ? [place] [address]? FELICITA Salzaar [address] [address] ? FELICITA Nicole [address]? [facility] [address] [address] ? * Cassidy Prakash NP: PERFORM Event Display: Patient Education Leaflets Authored Date: [id number] Physical Therapy Referral ?? 250 ?? This page is FOR PRESCRIBERS Only, ? DO NOT GIVE TO THE PATIENT?? Physical Therapy Referral Program for Management of Pain In an effort to reduce narcotic use, some of our ED patients will benefit from a direct referral [place] care.?? [facility] will see INSURED patients and has a system in place to avoid sending follow up paperwork to the ED prescribers.? Note: Non-[facility] physical therapy services will probably NOT be able to handle ED generated PT referrals. ?? Patients should still follow up with their PCP as soon as possible regarding their ongoing care. Inform patients that [facility] will discuss insurance when they call.?? Some insurance plans limit the amount of PT a patient can receive each year. ?? Complete the FIRST PAGE of the patient???s referral sheet. [place] or write in diagnosis. M odify the timing for treatment, if needed. List any major precautions (i.e.?? Non-weight bearing limb), if needed. Sign, date and print your name at the bottom. ? Physical Therapy Referral Form Patient Instructions: You are being referred to physical therapy.?? This form is your referral and MUST be brought to your appointment. You need to call to set up your appointment. ?? This form can be used at any [facility] location.?? A list of locations is attached.?? 1)?? DIAGNOSIS/ICD-10 (new [place] one) Cervicalgia: M54.2 ? Strain of muscle, fascia and tendon at neck level: S16.1XXD? Radiculopathy, cervical region: M54.12? Mid back pain: M54.9 ? Low back pain:?? M54.5 Strain of muscle, fascia and tendon of lower back: S39.012D Radiculopathy, lumbosacral region: M54.17 Other:? 2)? [? ]? Evaluate and Treat 2 Times/Week for 4 weeks as needed [? ]?Other: 3)? [? ]? No Precautions [? ]?Precautions: ?? I hereby certify these services as medically necessary for the patient???s plan of care. Physician???s Signature Date Physician Name (printed)? Locations You can call any location below.?? Tell them you were seen in a [facility] and have a referral form.?? Remember to bring your referral form with you to the appointment. FELICITA Davila [address]? FELICITA Paz [address], [address]? [address] ? [place] FELICITA ? FELICITA Jiménez [address] [place] [address]? [address] ? [place] [address]? [place] [address] ? [place] [address]? [facility] [address] ? Patient Care team information Care Team Personnel Name: Not on Staff, PCP Position: S Physician (General Medicine) Member Role: PCP Care Team Related Persons Name: MELY GUZMAN Address: home [address] [place] [id number] Name: CHALO PICHARDO Address: [address] [place] [address]
--- OUTSIDE RECORDS SUMMARY | 2024-03-07 18:35 | XMS_ITS | Continuity of Care Document ---
Author Organization [facility] ter Address [address] [place] [address]- Care Team Providers Care Dry Cleaner Apprentice Name Role Phone Not on Staff, PCP Primary Care Physician Unavail able Encounter [facility] Date(s): 01/13/24 - 01/13/[address] [address]- Encounter Diagnosis Pain to the right fifth digit(Final) - 01/13/24 Discharge Disposition: A-D/C Home Attending Physician: Cipriano Vale MD Admitting Physician: Cipriano Vale MD Referring Physician: Not on Staff, Referring [...] 5 mg, Tablet, By Mouth, Once, STAT, 01/13/24 11:54:00 EDT, Stop date 01/13/24 11:54:00 EDT Start Date: 01/13/24 Stop Date: 01/13/24 Status: Completed oxyCODONE 5 mg oral tablet 5 mg, 1, tablet, By Mouth, Every 6 hours, PRN, # 4 tablet, Refills 0, Tot. Refills 0, Maintenance, as needed for pain, 01/13/24 13:06:00 EDT, Route to Pharmacy Electronically, [facility]/pharmacy #[id number], Partial fill upon patient request if the prescription i... Start Date: 01/13/24 Status: Ordered Problem List Condition Confirmation Course Effective Dates Status Health St atus Informant Underweight Confirmed Active Vital Signs Most recent to oldest [Reference Range]: 1 2 Height 156 cm (01/13/24 10:55 AM) 154 cm (01/13/24 10:52 AM) Weight 41 kg (01/13/24 10:55 AM) Oxygen Saturation [94-100 %] 100 % (01/13/24 10:55 AM) 100 % (01/13/24 10:49 AM) Pulse Rate [55-90 bpm] 93 bpm *H* (01/13/24 10:55 AM) 102 bpm *H* (01/13/24 10:49 AM) Body Mass Index [18.5-24.99 kg/m2] 16.85 kg/m2 *L* (01/13/24 10:55 AM) Blood Pressure [90-138/55-84 mm Hg] 114/ 54mm Hg (01/13/24 10:55 AM) Respiratory Rate [16-30 br/min] 18 br/mi n (01/13/24 12:30 PM) 18 br/min (01/13/24 10:55 AM) Temperature [96.8-100.4 DegF] 98.5 DegF (01/13/24 10:55 AM) Mode of Delivery (Oxygen) Room air (01/13/24 10:55 AM) Room air (01/13/24 10:49 AM) Blood pressure sites Arm, left (01/13/24 10:55 AM) Temperature Route Oral (01/13/24 10:55 AM) Dry Weight 41 kg (01/13/24 10:55 AM) 41 kg (01/13/24 10:52 AM) Weight Obtained Via Patient/family state d (01/13/24 10:55 AM) Dry Weight Obtained Via Patient/family s tated (01/13/24 10:55 AM) Patient/family stated (01/13/24 10:52 AM) Social History Social History Type Response Smoking Status Never (less than 100 in lifetime) entered on: 05/12/23 Sex Female Patient Care team information Care Team Personnel Name: Not on Staff, PCP Position: S Physician (General Medicine) Member Role: PCP Care Team Related Persons Name: MELY GUZMAN Address: [address] [address] Name: CHALO PICHARDO Address: home [address] [place] [address]
== END 2024-03-07 19:29 | disposition left against medical advice (07) ==
PROVIDERS: Emergency Provider Emergency Medicine
DX: Z53.21 Procedure and treatment not carried out due to patient leaving prior to being seen by health care provider (principal)